=== PATIENT | male | born 1960 | race African-American/Black ===

== ENCOUNTER 2020-04-07 08:34 | Day surgery (SDC) | payer BC ==
[2020-04-07 09:25] LABS: HEMATOCRIT 48.9 % (37.9-51.0); HEMOGLOBIN 16.2 g/dL (13.5-17.0); MEAN CORPUSCULAR HEMOGLOBIN 25.3 pg (27.0-33.4); MEAN CORPUSCULAR HGB CONC 33.1 g/dL (32.0-36.0); MEAN CORPUSCULAR VOLUME 76 fl (80-97); PLATELET COUNT 918 10^3/uL (150-450); RED BLOOD COUNT 6.41 10^6/uL (4.35-5.55); RED CELL DISTRIBUTION WIDTH 16.5 % (11.5-14.0); WHITE BLOOD COUNT 10.4 10^3/uL (4.0-10.5)
[2020-04-07 09:32] LABS: INTERNATIONAL RATION (INR) 1.28; PROTHROMBIN TIME 16.1 SEC (11.4-15.4)
[2020-04-07 09:47] LABS: BLOOD UREA NITROGEN 27 mg/dL (7-20)
[2020-04-07] MEDS ORDERED: MIDAZOLAM 2 MG/2 ML INJ ONE (11:10)
[2020-04-07] MEDS ORDERED: FENTANYL CITRATE INJ/PF 100 MCG/2 ML AMPUL ONE (11:10)
--- NOTE | 2020-04-07 12:30 | RADIOLOGY REPORT (SQ) ---
EXAM DESCRIPTION: CT BIOPSY BONE MARROW, NEEDLE IMAGES COMPLETED DATE/TIME: 04/07/2020 12:04 pm REASON FOR STUDY: ELEVATED WHITE BLOOD CELL COUNT D47.3 ESSENTIAL (HEMORRHAGIC) THROMBOCYTHEMIA D72 .829 ELEVATED WHITE BLOOD CELL COUNT, UNSPECIFIED COMPARISON: None. TECHNIQUE: CT guided biopsy of the left iliac crest bone marrow performed with conscious sedation. CT Fluoroscopy Time: 2.[address] scanners at this facility use dose modulation, iterative reconstruction, and/or weight based d osing when appropriate to reduce radiation dose to as low as reasonably achievable (ALARA). [facility]: Dose Right [facility]: CareDose [facility]: Dose Right [facility]: Teradose 4D [facility]: Sykio RADIATION DOSE: CT Rad equipment meets quality standard of care and radiation dose reduction techniq ues were employed. CTDIvol: 4.0 - 20.3 mGy. DLP: 482 mGy-cm.mGy. FINDINGS: After obtaining informed consent and explaining the risks and benefits of conscious sedati on,the patient agreed to the procedure. Prior to the procedure, a time out was performed to verify th e patient's identity and planned procedure. IV conscious sedation was administered and physician direction by the registered nurse using 1.0 mill igrams of Versed and 100 micrograms of fentanyl. Physiologic monitoring was provided before, during, and after sedation. The total sedation time was 30 minutes. Documentation face to face time, the performing proceduralist, spent monitoring the patient: [address] scanning was performed to localize the percutaneous site for the biopsy approach. After sterile skin prep and local lidocaine for skin and deep tissue anesthesia, a coaxial biopsy nee dle was used to obtain a bone marrow aspirate, and a bone marrow core of tissue. The biopsy tissue wa s received by Dr. Grant's nurse to be sent out for evaluation. There were no immediate complication s. Pathology is pending at the time of dictation. IMPRESSION: CT GUIDED ASPIRATE AND CORE BIOPSY OF THE LEFT POSTERIOR ILIAC CREST BONE MARROW PERFORM ED WITHOUT IMMEDIATE COMPLICATION. PATHOLOGY PENDING. IV CONSCIOUS SEDATION WITHOUT COMPLICATION. COMMENT: Quality ID [id number]: Final reports for procedures using fluoroscopy that document radiation exp osure indices, or exposure time and number of fluorographic images (if radiation exposure indices are not available) Patient medication list reviewed: Yes- Quality ID# [id number]:Eligible professional attests to documenting i n the medical record they obtained, updated, or reviewed the patient's current medications.. TECHNICAL DOCUMENTATION: JOB ID: [id number] Quality ID# [id number]: Final reports with documentation of one or more dose reduction techniques (e.g., Aut omated exposure control, adjustment of the mA and/or kV according to patient size, use of iterative r econstruction technique) 2010 [employer]- All Rights Reserved Reading location - IP/workstation name: [email or web address]
[2020-04-07 14:37] VITALS: BP 137/82
== END 2020-04-07 15:15 | disposition home or self-care (01) ==
LOC: RAD 08:34
PROVIDERS: ATTEND Internal Medicine
DX: D47.3 Essential (hemorrhagic) thrombocythemia (principal); D72.829 Elevated white blood cell count, unspecified; Z79.82 Long term (current) use of aspirin; Z79.84 Long term (current) use of oral hypoglycemic drugs; Z79.899 Other long term (current) drug therapy; E11.9 Type 2 diabetes mellitus without complications; E78.00 Pure hypercholesterolemia, unspecified; I10 Essential (primary) hypertension
CPT/HCPCS: 36415; 82962; 84520; 82565; 85027; 85610; 85730; 38221; J2250; J3010